=== PATIENT | male | born 1975 | race Caucasian/White ===

== ENCOUNTER 2021-07-19 17:58 | Emergency (ER) | payer MEDICAID ==
[~2021-07-19] VITALS: Ht 177.8 cm; Wt 122.5 kg
[2021-07-19] MEDS ORDERED: ZYPREXA (18:09)
[2021-07-19] MEDS ORDERED: PERCOCET (18:09)
[2021-07-19] MEDS ORDERED: KEPPRA (18:09)
[2021-07-19] MEDS ORDERED: IV NORMAL SALINE 1000 ML BAG IV ONE (18:45)
[2021-07-19] MEDS ORDERED: IV D5/ 0.9% NACL 1,000 ML IV ONE (18:45)
[2021-07-19] MEDS ORDERED: LORAZEPAM 2 MG/1 ML VIAL IV ONE (18:45)
[2021-07-19] MEDS ORDERED: NALOXONE HCL 0.4 MG/ML AMPUL IV ONE (18:45)
[2021-07-19] MEDS ORDERED: NALOXONE HCL 0.4 MG/ML AMPUL ONE (19:25)
[2021-07-19] MEDS ORDERED: LORAZEPAM 2 MG/1 ML VIAL ONE (19:26)
[2021-07-19 19:50] LABS: HEMATOCRIT 37.5 % (36.7-47.1); MEAN CORPUSCULAR HEMOGLOBIN 31.1 uug (23.8-33.4); MEAN CORPUSCULAR VOLUME 91.8 fL (73.0-96.2); PLATELET COUNT (AUTO) 194 K/uL (152-348)
[2021-07-19 19:56] LABS: CARBON DIOXIDE 25 mmol/L (21-32); CREATININE 0.8 mg/dL (0.6-1.3); GLUCOSE 108 mg/dL (74-106); UREA NITROGEN, BLOOD 13 mg/dL (7-18)
[2021-07-19 20:02] LABS: ALANINE AMINOTRANSFERASE 27 U/L (16-63); ALKALINE PHOSPHATASE 92 U/L (50-136); ASPARTATE AMINOTRANSFERASE 22 U/L (15-37); BILIRUBIN,DIRECT 0.1 mg/dL (0.0-0.2); BILIRUBIN,TOTAL 0.2 mg/dL (0.2-1.0); TOTAL PROTEIN, SERUM 6.8 g/dL (6.4-8.2)
[2021-07-19 20:05] LABS: CHLORIDE 106 mmol/L (98-107); POTASSIUM 4.1 mmol/L (3.5-5.1)
[2021-07-19 20:08] LABS: THYROID STIMULATING HORMONE 1.577 mIU/mL (0.358-3.740)
[2021-07-19 20:09] LABS: ETHANOL 7 MG/DL (0-0)
[2021-07-19 20:22] LABS: ACETAMINOPHEN < 2.0 ug/mL (10-30)
[2021-07-19] MEDS ORDERED: CHLO25CA22 PO (20:34)
--- NOTE | 2021-07-19 21:08 | NUR ---
Patient discharged to home in stable condition. Written and verbal after care instructions given. Patient verbalizes understanding of instructions. Stressed follow up or return to ER for worsening s/s. pt discharged via wheelchair.
[2021-07-19 21:38] VITALS: BP 118/65
[2021-07-20] MEDS ORDERED: ONDA4TAB5 PO (05:44)
== END 2021-07-19 21:13 | disposition home or self-care (01) ==
LOC: ER 18:02
DX: T40.601A Poisoning by unspecified narcotics, accidental (unintentional), initial encounter (principal); F10.239 Alcohol dependence with withdrawal, unspecified; F17.210 Nicotine dependence, cigarettes, uncomplicated; Z59.00 Homelessness unspecified; Z79.899 Other long term (current) drug therapy; Z71.6 Tobacco abuse counseling; Y90.0 Blood alcohol level of less than 20 mg/100 ml; Y92.89 Other specified places as the place of occurrence of the external cause
CPT/HCPCS: 36415; 71045; 80048; 80076; 80299; 80320; 83880; 84443; 85025; 93005; 96361; 96374; 96375; 99285; 99406; J2060; J2310; A4663; G0480

== ENCOUNTER 2021-07-20 05:18 | Emergency (ER) | payer MEDICAID ==
[~2021-07-20] VITALS: Ht 177.8 cm; Wt 122.5 kg
[~2021-07-20 05:18] MED LIST: CHLO25CA22 PO; KEPPRA; PERCOCET; ZYPREXA
[2021-07-20] MEDS ORDERED: ONDANSETRON ODT 4 MG TAB.RAPDIS ONE (05:42)
[2021-07-20] MEDS ORDERED: ONDA4TAB5 PO (05:44)
[2021-07-20] MEDS: ONDANSETRON ODT 4 MG TAB.RAPDIS SL ONE (05:44)
--- NOTE | 2021-07-20 08:38 | NUR ---
breakfast provided for pt. pt awake, axox4.
--- NOTE | 2021-07-20 09:06 | NUR ---
Patient discharged to home in stable condition. Written and verbal after care instructions given. Patient verbalizes understanding of instructions. Stressed follow up or return to ER for worsening s/s.pt leftthe er with own wheel chair, refused to sign the d/c and homeless paper, did not take the d/c instruction, the px for zofran and home less resource package. pt refused to eat break fast. pt asking for the nearest gas station. Addendum: 07/20/21 at 0916 by SKIP pt was provided with taxi voucher couple of hours ago but refused to use it.
[2021-07-20 09:12] VITALS: BP 131/81
== END 2021-07-20 09:17 | disposition home or self-care (01) ==
LOC: ER 05:21
DX: R42 Dizziness and giddiness (principal); R11.0 Nausea; F10.129 Alcohol abuse with intoxication, unspecified; F17.210 Nicotine dependence, cigarettes, uncomplicated; Z71.6 Tobacco abuse counseling; Z59.00 Homelessness unspecified; Z79.899 Other long term (current) drug therapy; Y90.9 Presence of alcohol in blood, level not specified
CPT/HCPCS: 93005; A4663; Q0162

== ENCOUNTER 2021-09-24 23:47 | Emergency (ER) | payer MEDICAID ==
[~2021-09-24] VITALS: Ht 177.8 cm; Wt 122.5 kg
[~2021-09-24 23:47] MED LIST changes: +ONDA4TAB5 PO
--- NOTE | 2021-09-24 23:58 | NUR ---
Dr. Gibson at bedside for MSE.
[2021-09-25] MEDS ORDERED: IV NORMAL SALINE 1000 ML BAG IV ONE
[2021-09-25] MEDS ORDERED: PIPERACILLIN SODIUM/TAZOBACTAM 3.375 G in IV DEXTROSE 5% 50 ML IV ONE (00:15)
[2021-09-25] MEDS ORDERED: ACETAMINOPHEN ES 500 MG TABLET PO ONE (00:15)
[2021-09-25] MEDS ORDERED: ACETAMINOPHEN ES 500 MG TABLET ONE (00:37)
[2021-09-25] MEDS ORDERED: PIPERACILLIN/TAZOBACTAM/D5W 50 ML IV ONE (01:07)
[2021-09-25 01:12] LABS: HEMATOCRIT 42.4 % (36.7-47.1); MEAN CORPUSCULAR VOLUME 90.7 fL (73.0-96.2); PLATELET COUNT (AUTO) 289 K/uL (152-348)
[2021-09-25] MEDS ORDERED: LORAZEPAM 2 MG/1 ML VIAL IM ONE ×3 (01:15→03:00)
[2021-09-25] MEDS ORDERED: LORAZEPAM 2 MG/1 ML VIAL ONE ×5 (01:16→08:20)
[2021-09-25 01:37] LABS: ETHANOL < 3 MG/DL (0-0)
[2021-09-25 01:44] LABS: ALANINE AMINOTRANSFERASE 26 U/L (16-63); ALKALINE PHOSPHATASE 106 U/L (50-136); ASPARTATE AMINOTRANSFERASE 40 U/L (15-37); BILIRUBIN,DIRECT 0.1 mg/dL (0.0-0.2); BILIRUBIN,TOTAL 0.4 mg/dL (0.2-1.0); CARBON DIOXIDE 28 mmol/L (21-32); CHLORIDE 103 mmol/L (98-107); CREATINE KINASE, TOTAL 1508 U/L (39-308); CREATININE 1.6 mg/dL (0.6-1.3); GLUCOSE 122 mg/dL (74-106); POTASSIUM 4.9 mmol/L (3.5-5.1); UREA NITROGEN, BLOOD 24 mg/dL (7-18)
--- NOTE | 2021-09-25 01:45 | NUR ---
Patient is not cooperative, have flight of ideas, yelling
--- NOTE | 2021-09-25 01:47 | NUR ---
Dr. Gibson ordered 2mg ativan im.
[2021-09-25 01:49] LABS: THYROID STIMULATING HORMONE 3.875 mIU/mL (0.358-3.740)
--- NOTE | 2021-09-25 02:22 | NUR ---
informed er bell clerk that pt is icu status, unstable secondary to dt.
--- NOTE | 2021-09-25 02:53 | NUR ---
Dr Gibson verbally ordered Ativan 2mg IM
--- NOTE | 2021-09-25 04:07 | NUR ---
call to epic panel alberto Dubon
--- NOTE | 2021-09-25 04:10 | NUR ---
Cele Dubon called back from epic panel.
[2021-09-25] MEDS ORDERED: ONDANSETRON 4 MG/2 ML VIAL IV PRN (04:30)
[2021-09-25] MEDS ORDERED: LORAZEPAM 2 MG/1 ML VIAL IV PRN (04:30)
[2021-09-25] MEDS ORDERED: MAGNESIUM HYDROXIDE 30 ML LIQUID UDC PO PRN (04:30)
[2021-09-25] MEDS ORDERED: REMEDY ESSENTIAL ZINC PASTE 113 GM TP PRN (04:30)
[2021-09-25] MEDS ORDERED: ACETAMINOPHEN 325 MG TABLET PO PRN (04:30)
[2021-09-25] MEDS ORDERED: IV NS 1000 ML 1,000 ML IV PRN (04:30)
[2021-09-25] MEDS ORDERED: VANCOMYCIN IV 750 MG in IV DEXTROSE 5% 150 ML IV ONE (05:45)
[2021-09-25] MEDS ORDERED: IV NS 1000 ML 1,000 ML IV ONE (05:45)
[2021-09-25] MEDS ORDERED: VANCOMYCIN 1G/D5W 200 ML PIGGYBACK IV ONE (05:45)
--- NOTE | 2021-09-25 05:56 | NUR ---
spoke with Cele Dubon. made aware of patient's vital signs
[2021-09-25] MEDS: CEFTRIAXONE 1 G in IV DEXTROSE 5% 50 ML IV SCH ×2 (06:00→09:35)
[2021-09-25] MEDS ORDERED: THIAMINE HCL INJ 100 MG in IV DEXTROSE 5% 50 ML IV SCH ×2 (06:00→11:00)
[2021-09-25] MEDS ORDERED: THIAMINE HCL 200 MG/2 ML VIAL ONE (06:17)
[2021-09-25] MEDS ORDERED: CEFTRIAXONE /D5W 50ML IVPB **ER PYXIS IV ONE ×2 (06:17→09:35)
[2021-09-25] MEDS ORDERED: LORAZEPAM 2 MG/1 ML VIAL IV ONE ×2 (06:45→08:15)
[2021-09-25] MEDS ORDERED: AZITHROMYCIN IV 500 MG in IV DEXTROSE 5% 250 ML IV ONE (07:00)
--- NOTE | 2021-09-25 08:36 | NUR ---
SBAR to Sulma PARMAR
--- NOTE | 2021-09-25 08:41 | NUR ---
1st contact with patient: AOx4, anxious, upset, yelling loudly and wanting to leave the hospital. Dr Hatfield is aware. 1:1 sitter requested from nursing shift production supervisor Tessie. Comfort and safety measures maintained.
--- NOTE | 2021-09-25 08:45 | NUR ---
Please see paper records for vital signs (heart rate, respiration, BP & SpO2 levels [id number]) while patient is in ER department, pending ICU/CCU bed/nurse
[2021-09-25] MEDS ORDERED: PANTOPRAZOLE SODIUM IV 40 MG in IV DEXTROSE 5% 100 ML IV SCH (09:00)
[2021-09-25] MEDS ORDERED: AZITHROMYCIN 500MG/ D5W 250ML IVPB **ER PYXIS ONLY IV ONE (09:24)
[2021-09-25] MEDS ORDERED: PANTOPRAZOLE SODIUM 40 MG VIAL ONE (09:53)
--- NOTE | 2021-09-25 09:55 | NUR ---
* IV Vancomycin orders need to be verified by [email or web address]. Pharmacy staff [place] notified
[2021-09-25 10:00] VITALS: BP 166/100
[2021-09-25] MEDS: CHLORDIAZEPOXIDE HCL 25 MG CAPSULE PO SCH ×2 (10:00→13:00)
[2021-09-25] MEDS ORDERED: CHLORDIAZEPOXIDE HCL 25 MG CAPSULE ONE (10:00)
--- NOTE | 2021-09-25 10:06 | NUR ---
[email or web address]
[2021-09-25] MEDS ORDERED: VANCOMYCIN IV 200 ML ONE (10:07)
[2021-09-25] MEDS ORDERED: VANCOMYCIN IV 1,000 MG in IV DEXTROSE 5% 250 ML IV ONE (10:15)
[2021-09-25 11:00] VITALS: BP 181/111
[2021-09-25] MEDS ORDERED: VANCOMYCIN IV 750 MG in IV DEXTROSE 5% 250 ML IV ONE (12:00)
[2021-09-25] MEDS ORDERED: IV NS 1000 ML 1,000 ML IV SCH (12:15)
--- NOTE | 2021-09-25 12:15 | NUR ---
Dr Hatfield called back and was his pt wants to leave AMA. Liu refused to come sign the AMA form. He did state that the pt is fully oriented and fully aware of his condition.
[2021-09-25] MEDS ORDERED: LORAZEPAM 0.5 MG TABLET PO ONE (12:45)
[2021-09-25] MEDS ORDERED: LORAZEPAM 1 MG TABLET ONE (12:59)
--- NOTE | 2021-09-25 13:04 | NUR ---
1247pm: Patient does not wish to proceed with medical care recommended by Dr. Hatfield and Dr Vanegas. Patient given information related to possible complications, up to and including , which could occur as a result of leaving the hospital at this time. Patient verbalized understanding of risks involved due to leaving against medical advice. Patient signed AMA form. Left jugular vein IV removed. Catheter intact and site benign. Pressure and 4x4 gauze applied to site. No bleeding noted. Sutures from the IV line were removed as well. Patient was assisted to his street clothes and his own wheelchair. social worker clinical came and gave resources.
--- NOTE | 2021-09-25 15:59 | NUR ---
Social work consult was requested for a patient in the emergency room for substance abuse resources. Patient is 46-year-old male. Patient is alert and oriented X3. Patient could not state why he was at the emergency room. Patient presents with anxious mood and congruent affect. Patient presents with poor judgement and insight. 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 Patient denies that he is homeless. Patient states he lives in a one-story house on [address] [place] [address]. SW offered patient homeless resources and patient refused. Homeless waiver was signed and given to the patient and a copy was placed in the chart. Patient states that he is currently unemployed. Patient is currently not driving. Patient states that he has a history of alcohol and drug abuse. SW offered the patient substance abuse resources and the patient refused. Resources were placed in the chart. Patient states he has a history of PTSD. Patient states he does not see a therapist or have a psychiatrist. RASHAD placed resources for [address] [address] ([phone]) in patients chart. Patient denies current suicidal or homicidal ideation. SW provided emotional support and validation when speaking with the patient. Patient requested a taxi voucher at discharge. Patient states he will discharge home to [address] [place] [address].
[2021-09-26] MEDS ORDERED: CEFTRIAXONE 1 G in IV DEXTROSE 5% 50 ML IV SCH (09:00)
== END 2021-09-25 13:11 | disposition left against medical advice (07) ==
LOC: ER 23:52
DX: A41.9 Sepsis, unspecified organism (principal); R65.20 Severe sepsis without septic shock; N17.9 Acute kidney failure, unspecified; F10.239 Alcohol dependence with withdrawal, unspecified; Y90.0 Blood alcohol level of less than 20 mg/100 ml; M62.82 Rhabdomyolysis; Z59.00 Homelessness unspecified; Z53.29 Procedure and treatment not carried out because of patient's decision for other reasons; F41.9 Anxiety disorder, unspecified; M19.90 Unspecified osteoarthritis, unspecified site; Z20.822 Contact with and (suspected) exposure to COVID-19
CPT/HCPCS: 87077; 36415; 93005; 71045 ×2; 36569; 99291; 96374; 96372; 80076; 80048; 82550; 83880; 84439; 84443; 85025; 87426; 87040 ×2; 87186; 84484; 96365; 96366; 96367; 96368; 96375; 96376; 83605 ×2; 80320; J0456; J0696 ×2; J2060 ×5; C9113; J2543; J3411; J3370; J7040 ×3; A4663; A9150; G0480; J7050

== ENCOUNTER 2022-02-04 09:59 | Emergency (ER) | payer MEDICAID ==
[~2022-02-04] VITALS: Ht 177.8 cm; Wt 145.1 kg
[2022-02-04] MEDS ORDERED: LORAZEPAM 0.5 MG TABLET PO ONE (10:30)
--- NOTE | 2022-02-04 10:51 | NUR ---
Patient does not wish to proceed with medical care recommended by Dr. Darnell. Patient given information related to possible complications, up to and including , which could occur as a result of leaving the hospital at this time. Patient verbalizes understanding of risks involved due to leaving against medical advice. Patient has signed AMA form. Pt got himeself into his w/c and left the ER.
[2022-02-04 10:52] VITALS: BP 150/95
== END 2022-02-04 10:52 | disposition left against medical advice (07) ==
LOC: ER 09:59
DX: F10.239 Alcohol dependence with withdrawal, unspecified (principal); R06.02 Shortness of breath; Z59.00 Homelessness unspecified; R03.0 Elevated blood-pressure reading, without diagnosis of hypertension
CPT/HCPCS: A4663

== ENCOUNTER 2022-02-05 00:42 | Emergency (ER) | payer MEDICAID ==
[~2022-02-05] VITALS: Ht 172.7 cm; Wt 145.1 kg
[2022-02-05] MEDS ORDERED: THIAMINE HCL 100 MG TABLET PO ONE (04:30)
[2022-02-05] MEDS ORDERED: CHLORDIAZEPOXIDE HCL 25 MG CAPSULE PO ONE (04:30)
[2022-02-05] MEDS ORDERED: CHLORDIAZEPOXIDE HCL 25 MG CAPSULE ONE (04:44)
[2022-02-05] MEDS ORDERED: THIAMINE HCL 100 MG TABLET ONE (04:44)
--- NOTE | 2022-02-05 05:00 | NUR ---
Patient eloped from facility. ER physician notified.
--- NOTE | 2022-02-05 05:02 | NUR ---
Patient keep going in and out of the room
[2022-02-05 05:03] LABS: HEMATOCRIT 38.6 % (36.7-47.1); MEAN CORPUSCULAR HEMOGLOBIN 30.4 uug (23.8-33.4); MEAN CORPUSCULAR VOLUME 92.5 fL (73.0-96.2); PLATELET COUNT (AUTO) 228 K/uL (152-348)
[2022-02-05 05:04] LABS: CARBON DIOXIDE 26 mmol/L (21-32); CHLORIDE 96 mmol/L (98-107); CREATININE 0.8 mg/dL (0.6-1.3); GLUCOSE 103 mg/dL (74-106); UREA NITROGEN, BLOOD 13 mg/dL (7-18)
[2022-02-05 05:17] LABS: ALANINE AMINOTRANSFERASE 49 U/L (16-63); ALKALINE PHOSPHATASE 88 U/L (50-136); ASPARTATE AMINOTRANSFERASE 39 U/L (15-37); BILIRUBIN,DIRECT 0.2 mg/dL (0.0-0.2); BILIRUBIN,TOTAL 0.6 mg/dL (0.2-1.0); TOTAL PROTEIN, SERUM 7.7 g/dL (6.4-8.2)
[2022-02-05 05:22] LABS: ACETAMINOPHEN < 2.0 ug/mL (10-30)
[2022-02-05 05:26] LABS: ETHANOL < 3 MG/DL (0-0)
== END 2022-02-05 05:00 | disposition left against medical advice (07) ==
LOC: ER 00:54
DX: F10.239 Alcohol dependence with withdrawal, unspecified (principal); Y90.0 Blood alcohol level of less than 20 mg/100 ml; Z59.00 Homelessness unspecified; R00.0 Tachycardia, unspecified; R03.0 Elevated blood-pressure reading, without diagnosis of hypertension; M19.90 Unspecified osteoarthritis, unspecified site
CPT/HCPCS: 36415; 83605; 83735; 84484; 85025; 93005; A4663; G0480